=== PATIENT | female | born 1990 | race Caucasian/White ===

== ENCOUNTER 2016-11-10 15:06 | Emergency (ER) | payer MEDICAID ==
[2016-11-10 15:39] VITALS: RESP 16; TEMP 98.8
[2016-11-10] MEDS ORDERED: Sodium Chloride 0.9% 1,000 ML IV STA (16:10)
--- NOTE | 2016-11-10 16:28 | ED PDOC ---
HPI: Abdomen Time Seen by Provider: 11/10/16 16:02 Chief Complaint (Nursing): Abdominal Pain Chief Complaint (Provider): Abdominal Pain History Per: Patient History/Exam Limitations: no limitations Onset/Duration Of Symptoms: Days (x 2 weeks) Current Symptoms Are (Timing): Still Present Additional Complaint(s): Josephine King is a 26 y/o female who presents to the ED for right upper abdominal pain for the past 2 weeks. Had been told she has gallstones in the past, but did not proceed with surgery and elected to make dietary changes, with improvement of symptoms. states that patients diet has worsened lately, which he believes is contributory to abdominal pain worsening. Denies fever, chills, and urinary symptoms. Pain is worse after meals and radiates to right chest. PMD: None Past Medical History Reviewed: Historical Data, Nursing Documentation, Vital Signs Vital Signs: Last Vital Signs Temp 98.8 F 11/10/16 15:36 Pulse 60 11/10/16 15:36 Resp 16 11/10/16 15:36 BP 139/85 11/10/16 15:36 Pulse Ox 100 11/10/16 16:32 - Medical History PMH: No Chronic Diseases - Surgical History Surgical History: No Surg Hx - Family History Family History: States: Unknown Family Hx - Social History Current smoker - smoking cessation education provided: Yes Alcohol: None Drugs: Denies - Home Medications Home Medications: Ambulatory Orders Medication Instructions Recorded Ondansetron ODT [Zofran ODT] 1 odt PO BID PRN #6 odt 10/18/13 Tramadol Hydrochloride [Tramadol] 1 tab PO TID PRN #10 tab 10/18/13 - Allergies Allergies/Adverse Reactions: Allergies Allergy/AdvReac Type Severity Reaction Status Date / Time No Known Allergies Allergy Verified 11/10/16 15:36 Review of Systems ROS Statement: Except As Marked, All Systems Reviewed And Found Negative Constitutional: Negative for: Fever, Chills Gastrointestinal: Positive for: Nausea, Abdominal Pain (Right upper quadrant radiating to right chest) Genitourinary Female: Negative for: Dysuria, Frequency, Hematuria Physical Exam - Reviewed Nursing Documentation Reviewed: Yes Vital Signs Reviewed: Yes - Physical Exam Appears: Positive for: Non-toxic, No Acute Distress Head Exam: Positive for: ATRAUMATIC, NORMOCEPHALIC Skin: Positive for: Normal Color, Warm, Dry Eye Exam: Positive for: EOMI, Normal appearance, PERRL Neck: Positive for: Normal, Painless ROM Cardiovascular/Chest: Positive for: Regular Rate, Rhythm. Negative for: Murmur Respiratory: Positive for: Normal Breath Sounds. Negative for: Accessory Muscle Use, Respiratory Distress Gastrointestinal/Abdominal: Positive for: Soft, Tenderness (Mild right upper quadrant tenderness) Back: Positive for: Normal Inspection, R CVA Tenderness. Negative for: L CVA Tenderness Extremity: Positive for: Normal ROM. Negative for: Pedal Edema, Deformity Neurologic/Psych: Positive for: Alert, Oriented (x3) - ECG O2 Sat by Pulse Oximetry: 100 (RA) Pulse Ox Interpretation: Normal Medical Decision Making Medical Decision Making: Time: 16:09 Initial Impression: Right upper quadrant pain, rule out gallbladder disease Initial Plan: --US Abdomen Complete --Labs --Started on IV fluids and Toradol --Pending reevaluation Scribe Attestation: Documented by Monae Chase, acting as a scribe for Nancy Durand MD Provider Scribe Attestation: All medical record entries made by the Scribe were at my direction and personally dictated by me. I have reviewed the chart and agree that the record accurately reflects my personal performance of the history, physical exam, medical decision making, and the department course for this patient. I have also personally directed, reviewed, and agree with the discharge instructions and disposition. pending official US reading and labs. Disposition - Clinical Impression Clinical Impression: RUQ pain - Patient ED Disposition Is Patient to be Admitted: No Doctor Will See Patient In The: Office Counseled Patient/Family Regarding: Diagnosis - Disposition Disposition Time: 16:57 Condition: STABLE Forms: [employer] (Latvian) Patient Signed Over To: Lucho Emery Present On Arrival: None
--- NOTE | 2016-11-10 17:03 | US ---
HISTORY: RUQ pain COMPARISON: None. TECHNIQUE: Sonographic evaluation of the abdomen. FINDINGS: LIVER: Measures 13.9 cm. Patent portal vein. Portal venous flow: Hepatopetal. Unremarkeable echogenicity of the liver parenchyma. No mass. No intrahepatic bile duct dilatation. GALLBLADDER: Cholelithiasis. Negative study for gallbladder wall thickening, pericholecystic fluid, sonographic Cloud's sign. The gallbladder is distended. The stone measures 2.7 cm. COMMON BILE DUCT: Measures 4.8 mm. No stones. No dilatation. PANCREAS: Unremarkable as visualized. No mass. No ductal dilatation. RIGHT KIDNEY: Measures 4.1 x 10.4cm. Normal echogenicity. No calculus, mass, or hydronephrosis. LEFT KIDNEY: Measures 4.3 x 10.8cm. Normal echogenicity. No calculus, mass, or hydronephrosis. SPLEEN: Normal in size and contour. No mass. AORTA: No aneurysmal dilatation. IVC: Unremarkable. OTHER FINDINGS: None. IMPRESSION: Cholelithiasis. No sonographic evidence of acute cholecystitis.
[2016-11-10 17:15] LABS: BASO % 0.2 % (0.0-2.0); EOS # 0.1 K/uL (0.0-0.7); EOS % 0.5 % (0.0-4.0); HEMATOCRIT 38.5 % (34.0-47.0); LYMPH # 2.1 K/uL (1.0-4.3); LYMPH % 16.8 % (20.0-40.0); MEAN CELL VOLUME 88.4 fl (81.0-99.0); MEAN CORPUSCULAR HEMOGLOBIN 28.6 pg (27.0-31.0); MEAN CORPUSCULAR HGB CONC 32.3 g/dL (33.0-37.0); MEAN PLATELET VOLUME 7.4 fl (7.2-11.7); MONO % 8.1 % (0.0-10.0); NEUT # 9.3 K/uL (1.8-7.0); NEUT % 74.4 % (50.0-75.0); RED CELL DISTRIBUTION WIDTH 13.2 % (11.5-14.5); WHITE BLOOD COUNT 12.5 K/uL (4.8-10.8)
[2016-11-10 17:33] LABS: ALB/GLOB RATIO 1.3 (1.0-2.1); ALKALINE PHOSPHATASE 62 U/L (38-126); ALT/SGPT 25 U/L (9-52); AST/SGOT 30 U/L (14-36); BILIRUBIN,TOTAL 0.7 mg/dl (0.2-1.3); BLOOD UREA NITROGEN 6 mg/dl (7-17); CALCIUM 9.5 mg/dL (8.4-10.2); CARBON DIOXIDE 24 mmol/L (22-30); CHLORIDE 99 mmol/L (98-107); GFR AFRICAN-AMERICAN > 60; GLUCOSE,RANDOM 93 mg/dL (65-105); LIPASE 100 U/L (23-300); POTASSIUM 4.3 MMOL/L (3.6-5.0); SODIUM 140 mmol/l (132-148); TOTAL PROTEIN 7.5 G/DL (6.3-8.2)
--- NOTE | 2016-11-10 17:35 | ED PDOC ---
- Laboratory Results Result Diagrams: 11/10/16 17:05 11/10/16 17:05 - ECG O2 Sat by Pulse Oximetry: 100 (RA) Pulse Ox Interpretation: Normal Medical Decision Making Medical Decision Making: Time: 1700 --Patient was endorsed to provider by Dr. Nancy Durand. Pending lab results. No evidence of cholecystitis on US. LFT nl. WBC 12,5 Pt agreeable to outpt follow up with surgery. Scribe Attestation: Documented by Janny Juarez, acting as a scribe for Lucho Emery MD. Provider Scribe Attestation: All medical record entries made by the Scribe were at my direction and personally dictated by me. I have reviewed the chart and agree that the record accurately reflects my personal performance of the history, physical exam, medical decision making, and the department course for this patient. I have also personally directed, reviewed, and agree with the discharge instructions and disposition. Disposition - Clinical Impression Clinical Impression: RUQ pain, Cholelithiasis - POA Present On Arrival: None - Disposition Referrals: Abraham Sykes MD [Staff Provider] - [facility] [Outside] Disposition: Routine/Home Disposition Time: 17:52 Condition: FAIR Prescriptions: Dicyclomine [Dicyclomine HCl] 10 mg PO Q8 #10 cap Instructions: Gallstones (ED) Forms: [employer] (Croatian)
[2016-11-10 18:32] VITALS: BP 128/72; PULSE 68; O2SAT 99
== END 2016-11-10 18:32 | disposition home or self-care (01) ==
LOC: H.ER 15:06
DX: R10.11 Right upper quadrant pain (principal); K80.20 Calculus of gallbladder without cholecystitis without obstruction
CPT/HCPCS: 76700; 80053; 83690; 85025; 96374; 99283; J1885

== ENCOUNTER 2017-06-06 16:41 | Emergency (ER) | payer BC, MEDICAID ==
[2017-06-06 16:53] VITALS: O2SAT 100
[2017-06-06 17:50] LABS: BASO % 0.3 % (0.0-2.0); EOS # 0.1 K/uL (0.0-0.7); EOS % 0.4 % (0.0-4.0); HEMOGLOBIN 13.3 g/dL (12.0-16.0); LYMPH # 1.4 K/uL (1.0-4.3); LYMPH % 10.8 % (20.0-40.0); MEAN CELL VOLUME 90.4 fl (81.0-99.0); MEAN CORPUSCULAR HEMOGLOBIN 29.9 pg (27.0-31.0); MEAN PLATELET VOLUME 7.7 fl (7.2-11.7); MONO # 0.5 K/uL (0.0-0.8); MONO % 4.1 % (0.0-10.0); NEUT # 11.2 K/uL (1.8-7.0); NEUT % 84.4 % (50.0-75.0); RBC 4.46 Mil/uL (3.80-5.20); RED CELL DISTRIBUTION WIDTH 12.3 % (11.5-14.5); WHITE BLOOD COUNT 13.3 K/uL (4.8-10.8)
[2017-06-06 17:55] LABS: ALB/GLOB RATIO 1.3 (1.0-2.1); ALT/SGPT 47 U/L (9-52); AST/SGOT 56 U/L (14-36); BLOOD UREA NITROGEN 14 mg/dl (7-17); GFR AFRICAN-AMERICAN > 60; GFR NON-AFRICAN AMERICAN > 60; LIPASE 247 U/L (23-300)
--- NOTE | 2017-06-06 18:28 | ED PDOC ---
HPI: Chest Pain Time Seen by Provider: 06/06/17 17:00 Chief Complaint (Nursing): Chest Pain Chief Complaint (Provider): chest/abdominal pain History Per: Patient History/Exam Limitations: no limitations Onset/Duration Of Symptoms: Sudden Onset Current Symptoms Are (Timing): Better Context: Food Severity: Severe Quality: Sharp Associated Symptoms: Nausea. denies: Dyspnea, Diaphoresis Modifying Factors: None Exacerbating Factors: None Alleviating Factors: Rest Additional History Per: Prior Records Additional Complaint(s): 27yo female hx cholelithiasis in the past has decided against surgery states "i wasnt interested in the surgery at the time" now presents c/o sudden onset lower chest and upper abd pain radiating to the back associated with some SOB and nausea, dizziness. Pain occurred about 20-30min after eating cheese, fruit and cereal. Pain resolved after about 15min. Denies current symptoms. Pain was similar to prior history of similar pain told gallstones. Past Medical History Reviewed: Historical Data, Nursing Documentation, Vital Signs Vital Signs: Last Vital Signs Temp 98.0 F 06/06/17 16:49 Pulse 79 06/06/17 16:49 Resp 21 06/06/17 16:49 BP 109/69 06/06/17 16:49 Pulse Ox 100 06/06/17 18:30 - Medical History PMH: No Chronic Diseases - Surgical History Surgical History: No Surg Hx - Family History Family History: States: Unknown Family Hx - Social History Current smoker - smoking cessation education provided: No - Home Medications Home Medications: Ambulatory Orders Medication Instructions Recorded Ondansetron ODT [Zofran ODT] 1 odt PO BID PRN #6 odt 10/18/13 Tramadol Hydrochloride [Tramadol] 1 tab PO TID PRN #10 tab 10/18/13 Dicyclomine [Dicyclomine HCl] 10 mg PO Q8 #10 cap 11/10/16 - Allergies Allergies/Adverse Reactions: Allergies Allergy/AdvReac Type Severity Reaction Status Date / Time No Known Allergies Allergy Verified 11/10/16 15:36 Review of Systems Constitutional: Negative for: Fever ENT: Negative for: Ear Pain, Throat Pain Cardiovascular: Positive for: Chest Pain Respiratory: Negative for: Cough, Shortness of Breath Gastrointestinal: Positive for: Nausea, Abdominal Pain. Negative for: Vomiting , Diarrhea, Constipation, Melena, Hematemesis Genitourinary Female: Negative for: Dysuria Musculoskeletal: Positive for: Back Pain. Negative for: Neck Pain Skin: Negative for: Rash, Lesions Neurological: Negative for: Weakness, Numbness, Headache Psych: Negative for: Anxiety Physical Exam - Reviewed Nursing Documentation Reviewed: Yes Vital Signs Reviewed: Yes - Physical Exam Appears: Positive for: Well, Non-toxic, No Acute Distress Head Exam: Positive for: ATRAUMATIC, NORMAL INSPECTION, NORMOCEPHALIC Skin: Positive for: Normal Color, Warm, DRY Eye Exam: Positive for: EOMI, Normal appearance, PERRL ENT: Positive for: Normal ENT Inspection Neck: Positive for: Normal, Painless ROM Cardiovascular/Chest: Positive for: Regular Rate, Rhythm Respiratory: Positive for: CNT, Normal Breath Sounds Gastrointestinal/Abdominal: Positive for: Soft, Tenderness (+mild RUQ and epigastric tenderness). Negative for: Guarding Back: Positive for: Normal Inspection Extremity: Positive for: Normal ROM. Negative for: Deformity, Swelling Neurologic/Psych: Positive for: Alert, Oriented. Negative for: Motor/Sensory Deficits - Laboratory Results Result Diagrams: 06/06/17 17:30 06/06/17 17:30 - ECG O2 Sat by Pulse Oximetry: 100 Medical Decision Making Medical Decision Making: workup for chest /upper abd pain initiated US abd/ EKG/ labs ordered Pain free on exam, hold analgesics for now Accession No. : [id number] Patient Name / ID : CORRINA NEGRO / [id number] Exam Date : 06/06/2017 19:16:50 ( Approved ) Study Comment : Sex / Age : F / 27Y Creator : Mariah Mosquera MD Dictator : Mariah Mosquera MD Toxicology Teacher : Elevator Runner : Mariah Mosquera MD Approver2 : Report Date : 06/06/2017 19:00:12 My Comment : HISTORY: RUQ pain, hx cholelithiasis COMPARISON: None. TECHNIQUE: Sonographic evaluation of the right upper quadrant of the abdomen. FINDINGS: LIVER: Measures 15.2 cm in length. There is diffuse increased echogenicity of the liver parenchyma. No mass. No intrahepatic bile duct dilatation. GALLBLADDER: There is dense after shadowing in the gallbladder suggestive of gallbladder packed with multiple gallstones. The sonographic Cloud's sign is negative. No pericholecystic fluid. COMMON BILE DUCT: Measures 3.8 mm. No stones. No dilatation. PANCREAS: Unremarkable as visualized. No mass. No ductal dilatation. RIGHT KIDNEY: Measures 10.9 cm in length. Normal echogenicity. No calculus, mass, or hydronephrosis. AORTA: No aneurysmal dilatation. IVC: Unremarkable. OTHER FINDINGS: None . IMPRESSION: Gallbladder packed with gallstones. No sonographic evidence for acute cholecystitis. Diffuse increased echogenicity in the liver may reflect hepatic steatosis however parenchymal infectious/ inflammatory etiologies cannot be entirely excluded. Clinical and laboratory correlation is advised. --------- mild elev WBC LFTS normal Explained results and absolute need for followup, failure to followup or schedule surgery could result in profound complications including liver damage, pancreatitis with infection or other systemic illness. Referred to security control assessor surgery and encouraged to followup fer. Pt does not want admission or surgical eval today. Disposition - Clinical Impression Clinical Impression: Gallstones - Patient ED Disposition Is Patient to be Admitted: No Counseled Patient/Family Regarding: Studies Performed, Diagnosis, Need For Followup, Rx Given - Disposition Referrals: Javier Erwin MD [Staff Provider] - Disposition: Routine/Home Disposition Time: 19:10 Condition: STABLE Additional Instructions: YOU HAVE SIGNIFICANT GALLSTONES THAT WILL LIKELY REQUIRE SURGERY. DELAYING THIS SURGERY COULD HAVE SIGNIFICANT EFFECT ON YOUR LIVER, PANCREAS AND OTHER ABDOMINAL ORGANS. SEE SURGEON FER FOR EVALUATION AND SCHEDULING. AVOID FATTY FOODS. Instructions: Gallstones (DC) Forms: [employer] (Georgian)
--- NOTE | 2017-06-06 19:02 | US ---
HISTORY: RUQ pain, hx cholelithiasis COMPARISON: None. TECHNIQUE: Sonographic evaluation of the right upper quadrant of the abdomen. FINDINGS: LIVER: Measures 15.2 cm in length. There is diffuse increased echogenicity of the liver parenchyma. No mass. No intrahepatic bile duct dilatation. GALLBLADDER: There is dense after shadowing in the gallbladder suggestive of gallbladder packed with multiple gallstones. The sonographic Cloud's sign is negative. No pericholecystic fluid. COMMON BILE DUCT: Measures 3.8 mm. No stones. No dilatation. PANCREAS: Unremarkable as visualized. No mass. No ductal dilatation. RIGHT KIDNEY: Measures 10.9 cm in length. Normal echogenicity. No calculus, mass, or hydronephrosis. AORTA: No aneurysmal dilatation. IVC: Unremarkable. OTHER FINDINGS: None . IMPRESSION: Gallbladder packed with gallstones. No sonographic evidence for acute cholecystitis. Diffuse increased echogenicity in the liver may reflect hepatic steatosis however parenchymal infectious/ inflammatory etiologies cannot be entirely excluded. Clinical and laboratory correlation is advised.
[2017-06-06 19:37] VITALS: BP 115/70; PULSE 80; RESP 15; TEMP 98.4
--- NOTE | 2017-06-07 19:08 | CARD ---
APPROVED REPORT EKG Measurement Heart [id number] <Conclusion> Normal sinus rhythm Normal ECG
== END 2017-06-06 19:38 | disposition home or self-care (01) ==
LOC: H.ER 16:41
DX: K80.20 Calculus of gallbladder without cholecystitis without obstruction (principal)